=== PATIENT | female | born 1950 | race Caucasian/White ===

== ENCOUNTER → 2018-04-26 | Outpatient (CLI) | payer MEDICARE ==
--- NOTE | 2018-04-26 13:53 | RAD ---
COMPLETE RENAL ULTRASOUND Indication: Nocturia, urine stream splatters. Comparison: None. Procedure: Transabdominal ultrasound images are obtained of the kidneys and bladder. Findings: The kidneys demonstrate normal cortical echotexture. Corticomedullary differentiation is preserved. There is no hydronephrosis. The right kidney measures 10.5 cm. The left kidney measures 11.3 cm. The urinary bladder appears normal. Bilateral ureteral jets are seen. The prevoid calculated bladder volume is 475 mL. No significant post void residual. IMPRESSION: Urinary bladder is normal. Electronically signed by: Red Park MD (04/26/2018 1:50 PM) [id number]
--- NOTE | 2018-04-26 14:59 | RAD ---
Pelvic ultrasound Clinical Indication:nocturia urine stream splatters. . TRANSABDOMINAL SCAN Uterus measures about 6 cm longitudinal by 2.1 cm AP by 3.5 cm wide. Left ovary measures 2 cm long axis. Right ovary measures 1.6 cm long axis. TRANSVAGINAL SCAN Uterus: * Size (in centimeters): 6.2 cm longitudinal by 2.1 cm AP by 3.2 cm wide * Appearance: No evidence of mass. Nabothian cysts are identified. * Endometrium: 11 mm endometrial stripe thickness. Mild fluid within the endometrial canal. Right ovary: * Size: 1.4 cm long axis. * Blood flow: Intact * Appearance: No significant mass. Left ovary: * Size: 1.2 cm long axis. * Blood flow: Intact * Appearance: No significant mass. Free fluid: None visualized IMPRESSION: 1. Mild nonspecific fluid within the endometrial canal. 2. Otherwise unremarkable pelvic ultrasound. Electronically signed by: Supa Zhou MD (04/26/2018 2:56 PM) [facility]
== END | disposition home or self-care (01) ==
LOC: US 07:56
PROVIDERS: ATTEND Family Medicine
DX: N88.8 Other specified noninflammatory disorders of cervix uteri (principal); E03.9 Hypothyroidism, unspecified; J30.2 Other seasonal allergic rhinitis; M81.0 Age-related osteoporosis without current pathological fracture; E78.00 Pure hypercholesterolemia, unspecified; Z78.0 Asymptomatic menopausal state
CPT/HCPCS: 76770; 76830; 76856